=== PATIENT | male | born 1940 | race African-American/Black ===

== ENCOUNTER 2018-11-14 17:04 | Inpatient (IN) | payer MEDICARE, BC ==
[~2018-11-14] VITALS: Ht 177.8 cm; Wt 71.7 kg
--- NOTE | 2018-11-14 17:40 | NUR ---
Dr Barnard at the bedside for MSE.
--- NOTE | 2018-11-14 17:50 | NUR ---
Assissted pt to batheroom, but unable to collect urine.
[2018-11-14] MEDS ORDERED: METF-442 PO (17:58)
[2018-11-14] MEDS ORDERED: TAMSULOSIN PO (17:58)
[2018-11-14] MEDS ORDERED: FINA5TAB11 PO (17:58)
[2018-11-14 18:02] LABS: BASOPHILS # (AUTO) 0.1 K/uL (0.0-8.0); BASOPHILS % (AUTO) 1.4 % (0.0-2.0); EOSINOPHILS # (AUTO) 0.1 K/uL (0.0-0.7); EOSINOPHILS % (AUTO) 1.9 % (0.0-7.0); HEMATOCRIT 46.9 % (36.7-47.1); HEMOGLOBIN 15.8 g/dL (12.5-16.3); LYMPHOCYTES # (AUTO) 0.9 K/uL (20.0-40.0); LYMPHOCYTES % (AUTO) 18.6 % (20.5-51.5); MEAN CORPUSCULAR HEMOGLOBIN 30.3 uug (23.8-33.4); MEAN CORPUSCULAR HGB CONC 34 g/dL (32.5-36.3); MEAN CORPUSCULAR VOLUME 89.7 fL (73.0-96.2); MONOCYTES # (AUTO) 0.5 K/uL (2.0-10.0); MONOCYTES % (AUTO) 10.9 % (0.0-11.0); NEUTROPHILS # (AUTO) 3.2 K/uL (1.8-8.9); NEUTROPHILS % (AUTO) 67.2 % (38.5-71.5); PLATELET COUNT (AUTO) 181 K/uL (152-348); RED BLOOD CELL COUNT(AUTO) 5.23 MIL/uL (4.06-5.63); WHITE BLOOD COUNT (AUTO) 4.8 K/uL (3.6-10.2)
--- NOTE | 2018-11-14 18:12 | NUR ---
Beloging list completed, pt not qualified for MRSA.
[2018-11-14 18:16] LABS: ETHANOL 5 MG/DL (0-0)
[2018-11-14 18:19] LABS: CARBON DIOXIDE 29 mmol/L (21-32); CHLORIDE 104 mmol/L (98-107); CREATININE 1.1 mg/dL (0.6-1.3); GLUCOSE 109 mg/dL (74-106); POTASSIUM 4.2 mmol/L (3.5-5.1); UREA NITROGEN, BLOOD 12 mg/dL (7-18)
--- NOTE | 2018-11-14 18:29 | NUR ---
Pt resting in bed, watching TV. NAD noted.
[2018-11-14 18:32] LABS: ALANINE AMINOTRANSFERASE 33 U/L (16-63); ALKALINE PHOSPHATASE 75 U/L (50-136); ASPARTATE AMINOTRANSFERASE 33 U/L (15-37); BILIRUBIN,DIRECT 0.2 mg/dL (0.0-0.2); TOTAL PROTEIN, SERUM 7.9 g/dL (6.4-8.2)
[2018-11-14 18:34] LABS: ACETAMINOPHEN < 2.0 ug/mL (10-30)
--- NOTE | 2018-11-14 19:16 | NUR ---
Received report from Leanna CROCKER, assumed care of pt.,
--- NOTE | 2018-11-14 19:26 | NUR ---
Son at bedside,
--- NOTE | 2018-11-14 19:49 | NUR ---
Report given to Tiana CROCKER,
--- NOTE | 2018-11-14 20:50 | NUR ---
Pt. taken off unit via stretcher for admit to MHU, all belongings w/ pt., chart copied and taken over, pt. stable, NAD
[2018-11-14 20:55] VITALS: BP 147/83
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
[2018-11-14] MEDS ORDERED: TEMAZEPAM 7.5 MG CAPSULE PO PRN (21:45)
[2018-11-14] MEDS ORDERED: MAGNESIUM HYDROXIDE 30 ML LIQUID UDC PO PRN (21:45)
[2018-11-14] MEDS ORDERED: MAG HYDROX/AL HYDROX/SIMETH 30 ML LIQUID UDC PO PRN (21:45)
[2018-11-14] MEDS ORDERED: ACETAMINOPHEN 325 MG TABLET PO PRN (21:45)
[2018-11-14] MEDS ORDERED: LORAZEPAM 0.5 MG TABLET PO PRN (21:45)
--- NOTE | 2018-11-15 06:32 | NUR ---
Pt slept 6 hours. Pt given ativan at 2230h. Pt agitated and hyperverbal. Pt confused. Pt tolerated the medication. Pt calm down and sleeping comfortable. Safety and comfort provided. Pt Restoril was wasted in pyxis because pt spit it out and fell on the floor. Will continue to monitor.
--- NOTE | 2018-11-15 06:45 | NUR ---
Unable to call pt's and Tod (son). Tony Sandra lin is a wrong number when charge nurse called.Charge nurse called and left a message to Caleb Flores Jr.Pt stable and in no acute distress.
[2018-11-15] MEDS: METFORMIN HCL 500 MG TABLET PO SCH ×2 (08:00→18:00)
[2018-11-15 08:14] LABS: *BILIRUBIN,URIN 1+ (NEGATIVE); *BLOOD, URINE 1+ (NEGATIVE); *CLARITY,URINE CLEAR (CLEAR); *COLOR,URINE DARK YELLOW (YELLOW); *KETONES,URINE TRACE (NEGATIVE); LEUKOCYTE ESTERASE ,URINE NEGATIVE (NEGATIVE); NITRITE, URINE NEGATIVE (NEGATIVE); PH,URINE 5.5 (5.0-8.0); UGLUCOSE NEGATIVE (NEGATIVE)
[2018-11-15 08:22] LABS: SQUAMOUS EPITHELIAL CELL,UR NONE SEEN /HPF (NONE SEEN)
[2018-11-15 08:23] LABS: BACTERIA,URINE NONE SEEN /HPF (NONE SEEN); WBC,URINE NONE SEEN /HPF (0-3)
[2018-11-15 08:28] LABS: *AMPHETAMINE, URINE NEGATIVE (NEGATIVE); *BARBITURATE, URINE NEGATIVE (NEGATIVE); *CANNABINOID, URINE NEGATIVE (NEGATIVE); *COCCAINE, URINE NEGATIVE (NEGATIVE); *OPIATE, URINE NEGATIVE (NEGATIVE); *PHENCYCLIDINE SCREEN,URINE NEGATIVE (NEGATIVE)
[2018-11-15] MEDS: FINASTERIDE 5 MG TABLET PO SCH (09:00)
[2018-11-15] MEDS: BENAZEPRIL HCL 10 MG TABLET PO SCH (09:00)
[2018-11-15] MEDS ORDERED: Medication Not On Formulary EA (Metformin Hcl 1,000 MG) PO SCH (09:00)
[2018-11-15] MEDS: LORAZEPAM 1 MG TABLET PO PRN ×2 (10:00→20:10)
[2018-11-15 15:04] VITALS: BP 135/65
--- NOTE | 2018-11-15 15:17 | NUR ---
Initial Discharge Note: Patient is an 78 year old male who currently lives at home [[address], [place] [address]; ] with his Abeba and younger adult son Tony. Patient's son Fabrice Singh is interested in receiving assistance with DPOA and conservatorship. Per Fabrice, "I would like my father to return home once he is stable and taking his medications, I know he is a good man and we want him back". Retail Parts Pro will continue to meet with patient and collaborate with patient, family, and MD on a safe and proper discharge.
--- NOTE | 2018-11-15 18:43 | NUR ---
GPS: RECEIVED PATIENT AOX1, AMBULATORY SELF CARE, PATIENT DISORGANIZED, CONFUSED, DENIES THAT HE NEED MEDICATION, ASKING TO HAVE HIS FAMILY ON THE PHONE, SPOKE WITH SON ON PHONE, EASILY IRRITABLE AND TRIEND TO GO OUT OF THE UNIT, PRN MEDICATION GIVEN ORDERED, DENIES PAIN , VS WNL, PATIENT IS MONITORED FOR FALL RISK , WILL CONTINUE MONITOR
[2018-11-15] MEDS: TAMSULOSIN HCL 0.4 MG CAP.SR.24H PO SCH (20:09)
[2018-11-15] MEDS: DIVALPROEX 250 MG TABLET.DR PO SCH (20:09)
[2018-11-15] MEDS: QUETIAPINE FUMARATE 25 MG TABLET PO SCH (20:10)
--- NOTE | 2018-11-16 03:40 | NUR ---
received in bed upon initial rounds. alert and oriented x1. easily gets agitated. tolerated po meds well without difficulty. ativan given. VSS stay in bed most of the shift. will monitor patient. no further agitation or restlessness noted.
[2018-11-16 07:30] VITALS: BP 149/68
[2018-11-16] MEDS: METFORMIN HCL 500 MG TABLET PO SCH ×2 (08:02→17:26)
[2018-11-16] MEDS: LORAZEPAM 1 MG TABLET PO PRN (08:02)
[2018-11-16] MEDS: DIVALPROEX 250 MG TABLET.DR PO SCH ×2 (08:02→20:15)
[2018-11-16] MEDS: BENAZEPRIL HCL 10 MG TABLET PO SCH (08:04)
[2018-11-16] MEDS: FINASTERIDE 5 MG TABLET PO SCH (08:06)
[2018-11-16 16:00] VITALS: BP 90/41
--- NOTE | 2018-11-16 17:39 | NUR ---
PT SON HAS BEEN ESCORTED OUT OF UNIT. EXTREMELY HOSTILE, VERBALLY AGGRESSIVE, AND THREATENING STAFF. MAKING STATEMENTS SUCH "I'M FUCKING BIGGER THAN YOUR ASS" AND "JUST BECAUSE WE'RE BLACK, YOU THINK HE DON'T HAVE FAMILY AND SHIT?" PT'S SON CONTINUE TO BE HIGHLY IRATE AND UNREDIRECTABLE. YELLING/SCREAMING AT STAFF, PACING UNIT HALLWAY. ACCUSING CHARGE NURSE OF BEING ON THE PHONE FOR "2 HOURS" AND IGNORING HIM. STATING PT'S NURSE IS NEGLECTFUL. SECURITY HAS BEEN CALLED.
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
[2018-11-16] MEDS: QUETIAPINE FUMARATE 25 MG TABLET PO SCH (20:15)
[2018-11-16] MEDS: TAMSULOSIN HCL 0.4 MG CAP.SR.24H PO SCH (20:15)
[2018-11-16 20:54] VITALS: BP 110/57
[2018-11-17 07:30] VITALS: BP 122/47
[2018-11-17] MEDS: METFORMIN HCL 500 MG TABLET PO SCH ×2 (08:00→17:34)
[2018-11-17] MEDS: DIVALPROEX 250 MG TABLET.DR PO SCH ×2 (09:00→20:33)
[2018-11-17] MEDS: FINASTERIDE 5 MG TABLET PO SCH (09:00)
[2018-11-17] MEDS: BENAZEPRIL HCL 10 MG TABLET PO SCH (09:00)
--- NOTE | 2018-11-17 18:02 | NUR ---
Gps/Senior C Web Developer- Routine am medications initially refused by patient, but decided he will take them after awhile, re offered was able to take all am meds. as well routine pm med.Family was in to visit this pm.Patient, needed redirections and prompting.
[2018-11-17 20:00] VITALS: BP 110/54
[2018-11-17] MEDS: TAMSULOSIN HCL 0.4 MG CAP.SR.24H PO SCH (20:33)
[2018-11-17] MEDS: QUETIAPINE FUMARATE 25 MG TABLET PO SCH (20:34)
--- NOTE | 2018-11-18 05:57 | NUR ---
pt. slept for 6 hrs. pt. is calm & cooperative. kept pt safe & free from injury. ambulating well in the hallway. watched tv till sleepy not in any distress.
[2018-11-18 08:00] VITALS: BP 121/47
[2018-11-18] MEDS: BENAZEPRIL HCL 10 MG TABLET PO SCH (08:34)
[2018-11-18] MEDS: FINASTERIDE 5 MG TABLET PO SCH (08:34)
[2018-11-18] MEDS: METFORMIN HCL 500 MG TABLET PO SCH ×2 (08:34→17:05)
[2018-11-18] MEDS: DIVALPROEX 250 MG TABLET.DR PO SCH ×2 (08:34→20:39)
--- NOTE | 2018-11-18 14:29 | NUR ---
Gps/Barrel Rib Matting Machine Operator- Patient tends to stand up by the doorway, instructed patient to stay in the activity room . Confused, forgetful, needed redirections from time to time.
[2018-11-18 16:00] VITALS: BP 111/49
[2018-11-18 20:15] VITALS: BP 137/57
[2018-11-18] MEDS: QUETIAPINE FUMARATE 25 MG TABLET PO SCH (20:40)
[2018-11-18] MEDS: TAMSULOSIN HCL 0.4 MG CAP.SR.24H PO SCH (20:40)
[2018-11-19 07:30] VITALS: BP 108/71
[2018-11-19] MEDS: DIVALPROEX 250 MG TABLET.DR PO SCH ×2 (08:50→20:19)
[2018-11-19] MEDS: BENAZEPRIL HCL 10 MG TABLET PO SCH (08:50)
[2018-11-19] MEDS: FINASTERIDE 5 MG TABLET PO SCH (08:50)
[2018-11-19] MEDS: METFORMIN HCL 500 MG TABLET PO SCH ×2 (08:50→17:08)
[2018-11-19 15:19] VITALS: BP 95/53
--- NOTE | 2018-11-19 17:45 | NUR ---
Gps/Forest Science Professor-Patient increased confusion after family left , wants to go home, wants to leave , difficulty redirecting patient. Does not want to leave the door way, pt. pushing the doors. Wrote note saying and son will be back tomorrow, informed pt, to hang on to the paper to remind him family are coming back tomorrow.
[2018-11-19 19:50] VITALS: BP 146/60
[2018-11-19] MEDS: QUETIAPINE FUMARATE 25 MG TABLET PO SCH (20:18)
[2018-11-19] MEDS: TAMSULOSIN HCL 0.4 MG CAP.SR.24H PO SCH (20:18)
[2018-11-20 07:30] VITALS: BP 106/50
--- NOTE | 2018-11-20 07:53 | NUR ---
PATIENT IS SITTING AT THE BEDSIDE, NO SOB, RESP EVEN NONLABORED,SKIN WARM AND DRY TO TOUCH, NO AGGRESSIVE, OR COMBATIVE BEHAVIOR NOTED, NO ACUTE DISTRESS NOTED AT THIS TIME
[2018-11-20] MEDS: METFORMIN HCL 500 MG TABLET PO SCH ×2 (08:36→17:03)
[2018-11-20] MEDS: DIVALPROEX 250 MG TABLET.DR PO SCH ×2 (08:36→20:09)
[2018-11-20] MEDS: FINASTERIDE 5 MG TABLET PO SCH (08:36)
[2018-11-20] MEDS: BENAZEPRIL HCL 10 MG TABLET PO SCH (08:38)
--- NOTE | 2018-11-20 14:20 | NUR ---
patient noted with poor po intake, MD Brantley made aware, with order to do dietary consult, pulp mixer made aware.
--- NOTE | 2018-11-20 15:05 | NUR ---
rn neonatal icu recommended change cardiac diet to regular diet and start patient on megace, dr Brantley approved the recommendation and started patient on regular diet, and megace as ordered. offered patient different choices of food, encouraged to eat, but not effective, patient stated "he does not want to eat, he is not [place]", however patient is compliant with his medications, continue to monitor, kept safe, kept free from injury, patient is confuse, walks back and forth to the exit door,looks outside of the door, easily redirectable.
--- NOTE | 2018-11-20 15:30 | NUR ---
Responded to nutrition consult Spoke with nurse, nurse concerns pt hasn't been eating well, he refused food but med compliant. Pt has been seen and assessed by CARI. Pt seen again today, he kept saying he eating very well, eating everything. RD and nurse tried to give Ensure in the activity room, pt took a sip and said he doesn't like these cause it is too sweet and he doesn't like sweet. Dietitian's Recommendations: -Recs liberalize diet to regular (pt currently on cardiac diet), pt can have more food choices options and more taste (BG has been low) -Pt is compliant with medication, recs appetite stimulant -Continues provide Ensure, possible mix with regular milk in the cup and give it to pt (discussed with RN) Addendum: 11/20/18 at [address] Amended: Links added.
[2018-11-20 16:00] VITALS: BP 153/60
--- NOTE | 2018-11-20 17:06 | NUR ---
spoke to dr Brantley regarding administering metformin even patient has not eaten well, per Dr Brantley it is ok to administer metformin even patient has not eaten well.
--- NOTE | 2018-11-20 18:22 | NUR ---
patient has visitor his son and during dinner time, patient ate good dinner 100%, drank supplements as well, tolerated meds. however patient noted with episodes of agitation during son visit, son was upset about the broken one piece of blind in patient room, assured son that engineering is notified and will fix it as soon as possible. patient wanted to leave with son and his , standing next to exit door, redirected, talk to patient redirected and reoriented, effective, patient son requested urgent to talk to dr Nazario tomorrow whenever dr Nazario makes round at number [phone] charge nurse made aware and will endorse accordingly to next shift to endorse in the morning. patient went back to his room, no acute distress noted, questions are answered and issues are addressed.
[2018-11-20] MEDS: LORAZEPAM 1 MG TABLET PO PRN (19:27)
[2018-11-20] MEDS: QUETIAPINE FUMARATE 25 MG TABLET PO SCH (20:09)
[2018-11-20] MEDS: MEGESTROL ACETATE 400 MG/10 ML LIQUID UDC PO SCH (20:09)
[2018-11-20] MEDS: TAMSULOSIN HCL 0.4 MG CAP.SR.24H PO SCH (20:09)
[2018-11-20 20:18] VITALS: BP 142/57
[2018-11-21 07:30] VITALS: BP 118/54
[2018-11-21] MEDS: METFORMIN HCL 500 MG TABLET PO SCH ×2 (08:22→17:09)
[2018-11-21] MEDS: FINASTERIDE 5 MG TABLET PO SCH (08:22)
[2018-11-21] MEDS: MEGESTROL ACETATE 400 MG/10 ML LIQUID UDC PO SCH ×2 (08:22→20:28)
[2018-11-21] MEDS: BENAZEPRIL HCL 10 MG TABLET PO SCH (08:23)
[2018-11-21] MEDS: DIVALPROEX 250 MG TABLET.DR PO SCH ×2 (08:23→20:28)
[2018-11-21 16:00] VITALS: BP 108/45
[2018-11-21 20:24] VITALS: BP 112/50
[2018-11-21] MEDS: QUETIAPINE FUMARATE 25 MG TABLET PO SCH (20:28)
[2018-11-21] MEDS: TAMSULOSIN HCL 0.4 MG CAP.SR.24H PO SCH (20:28)
--- NOTE | 2018-11-21 21:25 | NUR ---
Patient received sitting up in bed, alert/oriented x1 with confusion noted. Patient requires frequent prompting. Patient complaint with medication. Patient denies pain at this time, will continue to monitor. Bed in lowest position, bed locked and bed alarm on while in bed.
[2018-11-21 21:26] VITALS: BP 120/60
[2018-11-22] MEDS: DIVALPROEX 250 MG TABLET.DR PO SCH ×2 (08:20→20:13)
[2018-11-22] MEDS: METFORMIN HCL 500 MG TABLET PO SCH ×2 (08:20→17:02)
[2018-11-22] MEDS: MEGESTROL ACETATE 400 MG/10 ML LIQUID UDC PO SCH ×2 (08:21→20:13)
[2018-11-22] MEDS: FINASTERIDE 5 MG TABLET PO SCH (08:23)
[2018-11-22] MEDS: BENAZEPRIL HCL 10 MG TABLET PO SCH (08:23)
[2018-11-22 10:05] VITALS: BP 122/64
[2018-11-22 15:34] VITALS: BP 111/50
[2018-11-22] MEDS: TAMSULOSIN HCL 0.4 MG CAP.SR.24H PO SCH (20:13)
[2018-11-22] MEDS: QUETIAPINE FUMARATE 25 MG TABLET PO SCH (20:13)
[2018-11-22 21:13] VITALS: BP 112/43
[2018-11-23 07:30] VITALS: BP_SYST 122; BP_SYST 145; BP_DIAS 50; BP_DIAS 69
[2018-11-23] MEDS: FINASTERIDE 5 MG TABLET PO SCH (08:11)
[2018-11-23] MEDS: DIVALPROEX 250 MG TABLET.DR PO SCH (08:11)
[2018-11-23] MEDS: METFORMIN HCL 500 MG TABLET PO SCH (08:11)
[2018-11-23] MEDS: MEGESTROL ACETATE 400 MG/10 ML LIQUID UDC PO SCH (08:11)
[2018-11-23 08:12] VITALS: BP 145/50
[2018-11-23] MEDS: BENAZEPRIL HCL 10 MG TABLET PO SCH (08:12)
--- NOTE | 2018-11-23 10:01 | NUR ---
Discharge Note: Patient will be discharged today back home [[address], [place] [address]; ]. Patient transportation will be provided by patients ashely Avina [[phone]]. Patient is alert and oriented X1-2. Spoke with patients ashely Avina and Tony and they are agreeable with discharge plan. Hat Brim Curler presented option for temporary or permanent SNF placement for patient. Patients estefani Avina and Tony declined. Patient was also provided with a referral to [facility] [[address] [facility] [address]; ]. Patient has a scheduled appointment to follow up with psychiatry services at [facility] on Wednesday, November 30 at 1:00pm. Patient was provided with outpatient mental health resources to [facility] , Kami Garcia , and the National Suicide Prevention Lifeline .
[2018-11-23] MEDS: LORAZEPAM 1 MG TABLET PO PRN (10:20)
--- NOTE | 2018-11-23 10:32 | NUR ---
FIREARMS REPORT: Machinist completed and submitted a [employer] firearms report for 5150 DTO certification. A copy of report has been placed in patient chart.
--- NOTE | 2018-11-23 10:45 | NUR ---
PATIENT IS ALERT, ORIENTED X1-2, NO SOB,RESP EVEN NONLABORED,SKIN WARM AND DRY TO TOUCH, PATIENT WAS SITTING IN THE DINNING ROOM PLATE PRINTER, WELL GROOMED, ATE HIS BREAKFAST 100% TOLERATED WELL, PATIENT IS DISCHARGED HOME WITH SON Fabrice AND WITH , INSTRUCTIONS GIVENT TO SON, EXPLAINED ABOUT PRESCRIPTION AND FOLLOW UP APT ON November, AT 1PM, SON VERBALIZED UNDERSTANDING OF FOLLOW UP APT AND PRESCRIPTION, RESOURCES PROVIDED, PATIENT DISCHARGED HOME IN STABLE CONDITION, NO SKIN ISSUES, BELONGINGS ARE ACCOUNTED AND SIGNED, ID BAND REMOVED, ASSISTED PATIENT TO THE CAR WITH WHEEL CHAIR, WITH FAMILY.
== END 2018-11-23 11:00 | disposition home or self-care (01) | DRG 885 ==
LOC: ER 17:06 → GPS 20:31
PROVIDERS: ADMIT Psychiatry & Neurology Psychiatry
DX: F39 Unspecified mood [affective] disorder (principal); E11.65 Type 2 diabetes mellitus with hyperglycemia; F02.81 Dementia in other diseases classified elsewhere, unspecified severity, with behavioral disturbance; G30.9 Alzheimer's disease, unspecified; E11.9 Type 2 diabetes mellitus without complications; Z79.84 Long term (current) use of oral hypoglycemic drugs; N40.0 Benign prostatic hyperplasia without lower urinary tract symptoms; I10 Essential (primary) hypertension
CPT/HCPCS: 36415; 80164; 80307; 85025; 93005; A4663; G0480; G0480-TC; J3490; J8999

== ENCOUNTER 2018-12-04 10:31 | Inpatient (IN) | payer MEDICARE, BC ==
[~2018-12-04] VITALS: Ht 182.9 cm; Wt 73.5 kg
[~2018-12-04 10:31] MED LIST: FINA5TAB11 PO; METF-442 PO; TAMSULOSIN PO
[2018-12-04] MEDS ORDERED: MAGNESIUM HYDROXIDE 30 ML LIQUID UDC PO PRN (12:00)
[2018-12-04] MEDS ORDERED: MAG HYDROX/AL HYDROX/SIMETH 30 ML LIQUID UDC PO PRN (12:00)
[2018-12-04] MEDS: METFORMIN HCL 500 MG TABLET PO SCH (18:16)
[2018-12-04 20:01] VITALS: BP 168/80
[2018-12-04] MEDS: LORAZEPAM 0.5 MG TABLET PO PRN (20:05)
[2018-12-04] MEDS: TAMSULOSIN HCL 0.4 MG CAP.SR.24H PO SCH (20:06)
[2018-12-04 21:15] VITALS: BP 152/80
[2018-12-04] MEDS: TEMAZEPAM 7.5 MG CAPSULE PO PRN (21:39)
[2018-12-05 07:30] VITALS: BP 108/66
[2018-12-05] MEDS: ACETAMINOPHEN 325 MG TABLET PO PRN (07:59)
[2018-12-05] MEDS: LORAZEPAM 0.5 MG TABLET PO PRN ×2 (07:59→17:29)
[2018-12-05] MEDS: METFORMIN HCL 500 MG TABLET PO SCH ×2 (08:29→17:29)
[2018-12-05] MEDS: FINASTERIDE 5 MG TABLET PO SCH (08:29)
[2018-12-05 15:10] VITALS: BP 163/78
[2018-12-05] MEDS: QUETIAPINE FUMARATE 25 MG TABLET PO SCH (20:03)
[2018-12-05] MEDS: TAMSULOSIN HCL 0.4 MG CAP.SR.24H PO SCH (20:03)
[2018-12-05] MEDS: DIVALPROEX 250 MG TABLET.DR PO SCH (20:03)
[2018-12-06] MEDS: TEMAZEPAM 7.5 MG CAPSULE PO PRN (00:19)
[2018-12-06 07:30] VITALS: BP 134/48
[2018-12-06] MEDS: LORAZEPAM 0.5 MG TABLET PO PRN (08:18)
[2018-12-06] MEDS: FINASTERIDE 5 MG TABLET PO SCH (09:23)
[2018-12-06] MEDS: QUETIAPINE FUMARATE 25 MG TABLET PO SCH ×2 (09:23→20:37)
[2018-12-06] MEDS: ACETAMINOPHEN 325 MG TABLET PO PRN (09:23)
[2018-12-06] MEDS: DIVALPROEX 250 MG TABLET.DR PO SCH ×2 (09:23→20:37)
[2018-12-06] MEDS: METFORMIN HCL 500 MG TABLET PO SCH ×2 (09:24→17:12)
[2018-12-06 15:58] VITALS: BP 139/58
[2018-12-06 19:59] VITALS: BP 125/62
[2018-12-06] MEDS: TAMSULOSIN HCL 0.4 MG CAP.SR.24H PO SCH (20:37)
[2018-12-07 07:03] LABS: BASOPHILS # (AUTO) 0.1 K/uL (0.0-8.0); BASOPHILS % (AUTO) 0.7 % (0.0-2.0); EOSINOPHILS % (AUTO) 0.2 % (0.0-7.0); HEMATOCRIT 44.6 % (36.7-47.1); HEMOGLOBIN 15.1 g/dL (12.5-16.3); LYMPHOCYTES # (AUTO) 0.8 K/uL (20.0-40.0); LYMPHOCYTES % (AUTO) 6.3 % (20.5-51.5); MEAN CORPUSCULAR HEMOGLOBIN 30.2 uug (23.8-33.4); MEAN CORPUSCULAR HGB CONC 34 g/dL (32.5-36.3); MEAN CORPUSCULAR VOLUME 89.5 fL (73.0-96.2); MONOCYTES % (AUTO) 8.4 % (0.0-11.0); NEUTROPHILS # (AUTO) 10.3 K/uL (1.8-8.9); NEUTROPHILS % (AUTO) 84.4 % (38.5-71.5); PLATELET COUNT (AUTO) 176 K/uL (152-348); RED BLOOD CELL COUNT(AUTO) 4.99 MIL/uL (4.06-5.63); WHITE BLOOD COUNT (AUTO) 12.2 K/uL (3.6-10.2)
[2018-12-07 07:10] LABS: CARBON DIOXIDE 25 mmol/L (21-32); CHLORIDE 102 mmol/L (98-107); GLUCOSE 165 mg/dL (74-106); POTASSIUM 4.4 mmol/L (3.5-5.1); UREA NITROGEN, BLOOD 49 mg/dL (7-18)
[2018-12-07 08:01] VITALS: BP 149/64
[2018-12-07] MEDS: DIVALPROEX 250 MG TABLET.DR PO SCH (08:14)
[2018-12-07] MEDS: QUETIAPINE FUMARATE 25 MG TABLET PO SCH (08:14)
[2018-12-07] MEDS: METFORMIN HCL 500 MG TABLET PO SCH (08:14)
[2018-12-07] MEDS: FINASTERIDE 5 MG TABLET PO SCH (08:15)
== END 2018-12-07 17:08 | disposition short-term general hospital (02) | DRG 885 ==
LOC: ER 10:31 → GPS 11:45
PROVIDERS: ADMIT Psychiatry & Neurology Psychiatry; ATTEND Nurse Practitioner Acute Care
DX: F29 Unspecified psychosis not due to a substance or known physiological condition (principal); N17.0 Acute kidney failure with tubular necrosis; F02.81 Dementia in other diseases classified elsewhere, unspecified severity, with behavioral disturbance; G30.9 Alzheimer's disease, unspecified; G20 Parkinson's disease; E11.9 Type 2 diabetes mellitus without complications; I44.0 Atrioventricular block, first degree; N40.0 Benign prostatic hyperplasia without lower urinary tract symptoms; I70.0 Atherosclerosis of aorta; Z79.84 Long term (current) use of oral hypoglycemic drugs; I10 Essential (primary) hypertension; E78.5 Hyperlipidemia, unspecified
CPT/HCPCS: 36415; 71045; 85025; 93005; 97110; 97116; 97530; A4663; J3490; J7030

== ENCOUNTER 2018-12-07 17:20 | Inpatient (IN) | payer MEDICARE, BC ==
[~2018-12-07] VITALS: Ht 180.3 cm; Wt 74.0 kg
[2018-12-07 16:30] VITALS: BP 141/73
[2018-12-07] MEDS ORDERED: DEXTROSE 50% 50 ML DISP.SYRIN IV PRN (17:30)
[2018-12-07] MEDS ORDERED: PANTOPRAZOLE SODIUM 40 MG VIAL IV SCH (17:30)
[2018-12-07] MEDS ORDERED: INSULIN REGULAR, HUMAN 300 UNIT/3 ML VIAL SQ PRN (17:30)
[2018-12-07] MEDS ORDERED: Z GUARD REMEDY PASTE 57 GM TUBE TOP PRN (17:30)
[2018-12-07] MEDS ORDERED: HYDROCODONE/APAP 5-325MG TABLET PO PRN (17:30)
[2018-12-07] MEDS ORDERED: MAGNESIUM HYDROXIDE 30 ML LIQUID UDC PO PRN (17:30)
[2018-12-07] MEDS ORDERED: ONDANSETRON 4 MG/2 ML VIAL IV PRN (17:30)
[2018-12-07] MEDS ORDERED: TEMAZEPAM 15 MG CAPSULE PO PRN (17:30)
[2018-12-07] MEDS: IV NS 1000 ML 1,000 ML IV PRN (18:28)
[2018-12-07 19:40] VITALS: BP 143/56
[2018-12-07] MEDS: TAMSULOSIN HCL 0.4 MG CAP.SR.24H PO SCH (20:39)
[2018-12-07] MEDS: BLOOD SUGAR DIAGNOSTIC 1 EACH STRIP VI SCH (20:44)
[2018-12-07 22:36] LABS: *BILIRUBIN,URIN NEGATIVE (NEGATIVE); *BLOOD, URINE 3+ (NEGATIVE); *COLOR,URINE YELLOW (YELLOW); *KETONES,URINE NEGATIVE (NEGATIVE); *UROBILINOGEN,URINE 0.2 E.U./dl (NORMAL); LEUKOCYTE ESTERASE ,URINE NEGATIVE (NEGATIVE); NITRITE, URINE NEGATIVE (NEGATIVE); PH,URINE 5.5 (5.0-8.0); UGLUCOSE NEGATIVE (NEGATIVE)
[2018-12-07 22:39] LABS: *CLARITY,URINE HAZY (CLEAR)
[2018-12-07 22:44] LABS: BACTERIA,URINE NONE SEEN /HPF (NONE SEEN); RBC,URINE 50-80 /HPF (0-3); SQUAMOUS EPITHELIAL CELL,UR FEW /HPF (NONE SEEN); URINE AMORPHOUS URATE FEW /HPF; WBC,URINE 0-3 /HPF (0-3)
[2018-12-07 22:46] LABS: *CREATININE,URINE 139.2 mg/dL (30-125); *URINE TOTAL PROTEIN RANDOM 46.5 mg/dL (<150/24HR)
[2018-12-08] MEDS: ACETAMINOPHEN 325 MG TABLET PO PRN (00:10)
[2018-12-08] MEDS: IV NS 1000 ML 1,000 ML IV PRN ×2 (03:37→14:40)
[2018-12-08] MEDS: PANTOPRAZOLE SODIUM 40 MG TABLET.DR PO SCH (06:10)
[2018-12-08] MEDS: BLOOD SUGAR DIAGNOSTIC 1 EACH STRIP VI SCH ×4 (06:30→20:40)
[2018-12-08 06:31] VITALS: BP 138/61
[2018-12-08 06:39] LABS: BASOPHILS % (AUTO) 0.3 % (0.0-2.0); EOSINOPHILS # (AUTO) 0.1 K/uL (0.0-0.7); EOSINOPHILS % (AUTO) 0.8 % (0.0-7.0); HEMATOCRIT 40.4 % (36.7-47.1); HEMOGLOBIN 13.8 g/dL (12.5-16.3); LYMPHOCYTES # (AUTO) 0.9 K/uL (20.0-40.0); LYMPHOCYTES % (AUTO) 10.9 % (20.5-51.5); MEAN CORPUSCULAR HEMOGLOBIN 30.6 uug (23.8-33.4); MEAN CORPUSCULAR HGB CONC 34 g/dL (32.5-36.3); MEAN CORPUSCULAR VOLUME 89.3 fL (73.0-96.2); MONOCYTES # (AUTO) 0.8 K/uL (2.0-10.0); MONOCYTES % (AUTO) 10.3 % (0.0-11.0); NEUTROPHILS # (AUTO) 6.2 K/uL (1.8-8.9); NEUTROPHILS % (AUTO) 77.7 % (38.5-71.5); PLATELET COUNT (AUTO) 126 K/uL (152-348); RED BLOOD CELL COUNT(AUTO) 4.52 MIL/uL (4.06-5.63)
[2018-12-08 06:54] LABS: ALANINE AMINOTRANSFERASE 17 U/L (16-63); ALKALINE PHOSPHATASE 64 U/L (50-136); ASPARTATE AMINOTRANSFERASE 15 U/L (15-37); BILIRUBIN,TOTAL 1.1 mg/dL (0.2-1.0); CARBON DIOXIDE 26 mmol/L (21-32); CHLORIDE 110 mmol/L (98-107); CREATINE KINASE, TOTAL 124 U/L (39-308); CREATININE 1.9 mg/dL (0.6-1.3); GLUCOSE 109 mg/dL (74-106); MAGNESIUM 2.1 mg/dL (1.8-2.4); PHOSPHOROUS 3.3 mg/dL (2.5-4.9); POTASSIUM 3.8 mmol/L (3.5-5.1); TOTAL PROTEIN, SERUM 7.1 g/dL (6.4-8.2); UREA NITROGEN, BLOOD 51 mg/dL (7-18)
[2018-12-08] MEDS: FINASTERIDE 5 MG TABLET PO SCH (08:38)
[2018-12-08 12:05] VITALS: BP 151/63
[2018-12-08 15:25] VITALS: BP 134/58
[2018-12-08 20:00] VITALS: BP 149/69
[2018-12-08] MEDS: QUETIAPINE FUMARATE 25 MG TABLET PO SCH (20:40)
[2018-12-08] MEDS: TAMSULOSIN HCL 0.4 MG CAP.SR.24H PO SCH (20:40)
[2018-12-09] VITALS: BP 153/54
[2018-12-09 04:00] VITALS: BP 161/68
[2018-12-09] MEDS: IV NS 1000 ML 1,000 ML IV PRN ×2 (04:41→21:34)
[2018-12-09 06:27] LABS: CARBON DIOXIDE 26 mmol/L (21-32); CHLORIDE 110 mmol/L (98-107); CREATININE 0.9 mg/dL (0.6-1.3); GLUCOSE 104 mg/dL (74-106); POTASSIUM 3.6 mmol/L (3.5-5.1); UREA NITROGEN, BLOOD 22 mg/dL (7-18)
[2018-12-09] MEDS: BLOOD SUGAR DIAGNOSTIC 1 EACH STRIP VI SCH ×4 (06:27→21:29)
[2018-12-09] MEDS: PANTOPRAZOLE SODIUM 40 MG TABLET.DR PO SCH (06:27)
[2018-12-09 07:16] VITALS: BP 157/60
[2018-12-09 07:28] LABS: BASOPHILS % (AUTO) 0.6 % (0.0-2.0); EOSINOPHILS # (AUTO) 0.1 K/uL (0.0-0.7); EOSINOPHILS % (AUTO) 2.7 % (0.0-7.0); HEMATOCRIT 37.9 % (36.7-47.1); LYMPHOCYTES # (AUTO) 0.8 K/uL (20.0-40.0); LYMPHOCYTES % (AUTO) 15.8 % (20.5-51.5); MEAN CORPUSCULAR HEMOGLOBIN 30.9 uug (23.8-33.4); MEAN CORPUSCULAR HGB CONC 34 g/dL (32.5-36.3); MEAN CORPUSCULAR VOLUME 89.9 fL (73.0-96.2); MONOCYTES # (AUTO) 0.6 K/uL (2.0-10.0); MONOCYTES % (AUTO) 11.1 % (0.0-11.0); NEUTROPHILS # (AUTO) 3.5 K/uL (1.8-8.9); NEUTROPHILS % (AUTO) 69.8 % (38.5-71.5); PLATELET COUNT (AUTO) 108 K/uL (152-348); RED BLOOD CELL COUNT(AUTO) 4.22 MIL/uL (4.06-5.63)
[2018-12-09] MEDS: FINASTERIDE 5 MG TABLET PO SCH (09:08)
[2018-12-09 09:10] LABS: ALBUMIN 3.2 g/dL (2.9-4.4); ALPHA-1-GLOBULIN 0.4 g/dL (0.0-0.4); ALPHA-2-GLOBULIN 0.9 g/dL (0.4-1.0); BETA GLOBULIN 1.1 g/dL (0.7-1.3); GAMMA GLOBULIN 0.9 g/dL (0.4-1.8); GLOBULIN, TOTAL 3.3 g/dL (2.2-3.9); M-SPIKE Not Observed g/dL (Not Observed)
[2018-12-09 11:51] VITALS: BP 142/62
[2018-12-09 15:53] VITALS: BP 140/56
[2018-12-09 20:11] VITALS: BP 139/64
[2018-12-09] MEDS: TAMSULOSIN HCL 0.4 MG CAP.SR.24H PO SCH (21:19)
[2018-12-09] MEDS: QUETIAPINE FUMARATE 25 MG TABLET PO SCH (21:19)
[2018-12-10 04:30] VITALS: BP 172/68
[2018-12-10 05:09] LABS: HEPATITIS B SURFACE AB Non Reactive (.)
[2018-12-10] MEDS: PANTOPRAZOLE SODIUM 40 MG TABLET.DR PO SCH (06:32)
[2018-12-10 06:35] LABS: CARBON DIOXIDE 28 mmol/L (21-32); CHLORIDE 107 mmol/L (98-107); CREATININE 0.7 mg/dL (0.6-1.3); GLUCOSE 95 mg/dL (74-106); POTASSIUM 3.6 mmol/L (3.5-5.1); UREA NITROGEN, BLOOD 13 mg/dL (7-18)
[2018-12-10] MEDS: BLOOD SUGAR DIAGNOSTIC 1 EACH STRIP VI SCH ×4 (06:42→20:48)
[2018-12-10] MEDS: ACETAMINOPHEN 325 MG TABLET PO PRN (08:26)
[2018-12-10] MEDS: FINASTERIDE 5 MG TABLET PO SCH (08:26)
[2018-12-10 09:00] VITALS: BP 168/72
[2018-12-10 12:00] VITALS: BP 114/41
[2018-12-10 16:04] VITALS: BP 166/69
[2018-12-10 20:00] VITALS: BP 148/62
[2018-12-10] MEDS: DIVALPROEX 250 MG TABLET.DR PO SCH (20:43)
[2018-12-10] MEDS: TAMSULOSIN HCL 0.4 MG CAP.SR.24H PO SCH (20:43)
[2018-12-10] MEDS: QUETIAPINE FUMARATE 25 MG TABLET PO SCH (20:44)
[2018-12-11 05:53] VITALS: BP 147/61
[2018-12-11] MEDS: BLOOD SUGAR DIAGNOSTIC 1 EACH STRIP VI SCH ×4 (05:57→21:31)
[2018-12-11] MEDS: PANTOPRAZOLE SODIUM 40 MG TABLET.DR PO SCH (06:22)
[2018-12-11 06:45] VITALS: BP 147/61
[2018-12-11 08:55] VITALS: BP 138/56
[2018-12-11] MEDS: FINASTERIDE 5 MG TABLET PO SCH (09:04)
[2018-12-11] MEDS: DIVALPROEX 250 MG TABLET.DR PO SCH ×2 (09:04→21:19)
[2018-12-11 11:29] VITALS: BP 152/65
[2018-12-11 15:18] VITALS: BP 137/62
[2018-12-11 19:30] VITALS: BP 156/74
[2018-12-11] MEDS: QUETIAPINE FUMARATE 25 MG TABLET PO SCH (21:19)
[2018-12-11] MEDS: TAMSULOSIN HCL 0.4 MG CAP.SR.24H PO SCH (21:19)
[2018-12-12 05:30] VITALS: BP 146/88
[2018-12-12] MEDS: PANTOPRAZOLE SODIUM 40 MG TABLET.DR PO SCH (06:03)
[2018-12-12] MEDS: BLOOD SUGAR DIAGNOSTIC 1 EACH STRIP VI SCH ×3 (06:08→16:43)
[2018-12-12 08:12] LABS: CARBON DIOXIDE 29 mmol/L (21-32); CHLORIDE 105 mmol/L (98-107); CREATININE 0.7 mg/dL (0.6-1.3); GLUCOSE 102 mg/dL (74-106); POTASSIUM 3.7 mmol/L (3.5-5.1); UREA NITROGEN, BLOOD 13 mg/dL (7-18)
[2018-12-12] MEDS: FINASTERIDE 5 MG TABLET PO SCH (08:56)
[2018-12-12] MEDS: DIVALPROEX 250 MG TABLET.DR PO SCH (08:56)
[2018-12-12] MEDS ORDERED: VALSARTAN 80 MG TABLET PO SCH (09:15)
[2018-12-12 11:01] VITALS: BP 135/59
[2018-12-12 16:26] VITALS: BP 138/61
[2018-12-13] MEDS ORDERED: TAMS-3 PO (08:03)
== END 2018-12-12 18:08 | DRG 682 ==
LOC: MEDSURG3 17:20
PROVIDERS: ADMIT Nurse Practitioner Acute Care; ATTEND Nurse Practitioner Acute Care
DX: N17.0 Acute kidney failure with tubular necrosis (principal); G93.41 Metabolic encephalopathy; E44.0 Moderate protein-calorie malnutrition; D68.59 Other primary thrombophilia; R62.7 Adult failure to thrive; E86.0 Dehydration; Z68.22 Body mass index [BMI] 22.0-22.9, adult; F03.90 Unspecified dementia, unspecified severity, without behavioral disturbance, psychotic disturbance, mood disturbance, and anxiety; E78.5 Hyperlipidemia, unspecified; N40.0 Benign prostatic hyperplasia without lower urinary tract symptoms; I70.0 Atherosclerosis of aorta; E11.9 Type 2 diabetes mellitus without complications; Z79.84 Long term (current) use of oral hypoglycemic drugs; Z79.899 Other long term (current) drug therapy; I10 Essential (primary) hypertension
CPT/HCPCS: 36415; 76770; 83735; 83970; 84100; 84155; 84156; 84165; 84300; 85025; 86704; 86706; 86803; 97116; 97530; G0378; J1815; J3490; J7030

== ENCOUNTER 2018-12-12 18:02 | Inpatient (IN) | payer MEDICARE, BC ==
[~2018-12-12] VITALS: Ht 180.3 cm; Wt 74.8 kg
--- NOTE | 2018-12-12 18:33 | NUR ---
Patient resting in bed with 1:1 sitter at bedside for safety, discharge from Med surg complete. Will endorse GPS overflow admission to oncoming shift. IV access removed with transition from Acute to GPS overflow. Patient belongings in contraband, safety precautions in place. GPS paper chart complete. Patient seen by PT today, NWB to right lower extremity Beni Murry BANQUET DIRECTOR aware. Patient's baseline is up to chair. Accuchecks done, no insulin coverage today. [address], up 12/19/18. End of shift chart check done, will endorse care.
[2018-12-12] MEDS ORDERED: TEMAZEPAM 7.5 MG CAPSULE PO PRN (18:45)
[2018-12-12] MEDS ORDERED: MAGNESIUM HYDROXIDE 30 ML LIQUID UDC PO PRN (18:45)
[2018-12-12] MEDS ORDERED: LORAZEPAM 1 MG TABLET PO PRN (18:45)
[2018-12-12] MEDS ORDERED: MAG HYDROX/AL HYDROX/SIMETH 30 ML LIQUID UDC PO PRN (18:45)
--- NOTE | 2018-12-12 18:45 | NUR ---
informed Dr Nazario that pt is now under U overflow
[2018-12-12 20:18] VITALS: BP 134/58
--- NOTE | 2018-12-12 21:55 | NUR ---
Received report from OBI Reza because of change of assignment. Patient is in bed, A/O x1 with 1:1 sitter at bedside. Patient has been admitted as a MHU overflow, patient is now on at 14 day hold up on 12/19/18. No signs of acute distress noted. No signs of pain or SOB. Safety measures initiated. Will continue with admission process.
[2018-12-13 04:00] VITALS: BP 127/60
[2018-12-13] MEDS ORDERED: TAMS-3 PO (08:03)
[2018-12-13 09:05] VITALS: BP 126/59
[2018-12-13 11:00] VITALS: BP 135/62
[2018-12-13 14:43] VITALS: BP 129/52
--- NOTE | 2018-12-13 19:30 | NUR ---
Received patient in bed with 1:1 sitter at bedside. No signs of acute distress noted. No complaints of pain or SOB. Patient is confused and trying to get out of bed, but easy to redirect. No episodes of aggression noted. Patient is still A/Ox1. Safety measures initiated. Bed is low and locked, bed alarm on, side rails up x3. Will continue to monitor.
[2018-12-13 20:00] VITALS: BP 146/56
[2018-12-13] MEDS: DIVALPROEX 250 MG TABLET.DR PO SCH (21:20)
[2018-12-13] MEDS: QUETIAPINE FUMARATE 25 MG TABLET PO SCH (21:20)
[2018-12-14] MEDS: DIVALPROEX 250 MG TABLET.DR PO SCH ×3 (08:03→21:00)
[2018-12-14 08:17] VITALS: BP 108/47
--- NOTE | 2018-12-14 14:00 | NUR ---
pt did not urinate from 0700 am to 1400 bladder scane done it showed 999ml md notified new orders received and carried out.
[2018-12-14 15:35] VITALS: BP 143/59
[2018-12-14 19:36] VITALS: BP 139/67
--- NOTE | 2018-12-14 20:45 | NUR ---
Patient transferred to MHU with 1:1 sitter in stable condition.
[2018-12-14] MEDS: ACETAMINOPHEN 325 MG TABLET PO PRN ×2 (20:56→21:14)
[2018-12-14] MEDS: QUETIAPINE FUMARATE 25 MG TABLET PO SCH ×2 (20:56→21:00)
[2018-12-14 21:04] VITALS: BP 132/59
--- NOTE | 2018-12-14 22:00 | NUR ---
received to care, at 2100, a transfer from 3rd floor GPS overflow, appearing confused and disoriented. 1;1 sitter at remains at bedside for safety, due to fall risk. refused all medications, and snacks offered. barcenas catheter remains in place, and patent, draining clear and kavin urine, in adequate amounts. as of 2200, he remains asleep. no distress noted. will continue to monitor closely.
--- NOTE | 2018-12-15 06:00 | NUR ---
slept fairly well, last night. continues to sleep. sitter remains at side. no distress noted.
[2018-12-15 07:30] VITALS: BP 129/48
--- NOTE | 2018-12-15 08:46 | NUR ---
Discharge Note: Patient will be discharged back home [[address] [place] [address]; ] via private transportation arranged by patient�s son � Fabrice Singh [[phone]] by 11:00am. Patient is alert and oriented x1, denies suicidal ideation, and is agreeable with discharge plan. Line Up Machine Operator discussed and offered placement options to patient�s sonFabrice. Patient�s son declined placement and stated family would like to have patient return home. Line Up Machine Operator also discussed with son the possibility of patient being discharged home with a Chandler catherer, and that patient may benefit from home health referral. Patient�s son Fabrice declined home health referral. Patient was provided with neurologist referral and is scheduled to be seen by Dr. Zackary Keane [[address] [place] [address], [address], [place] [address]; ] on , December 22, 2018 at 3:15pm. A continuing care packet has been sent to the office of Dr. Zackary Keane. Patient has also been provided with mental health resources including [facility] Crisis Line [ ], Kami Garcia [ ], and the National Suicide Prevention Lifeline [ ].
[2018-12-15] MEDS: DIVALPROEX 250 MG TABLET.DR PO SCH (08:48)
--- NOTE | 2018-12-15 11:00 | NUR ---
Discharged instructions given to and son, Fabrice regarding medications to continue at home . Prescription both psych and medical given and instructed to bring to patient pharm. to be filled, son verbalized understanding. Also, patient went home with barcenas catheter and son instructed how to take care of catheter. Fabrice, son stated that he will bring patient to [facility] right after the discharged.1130 Patient on wheel chair and wheeled to [place] to parking area by the hospital sitter. Patient discharged home with son and spouse, patient alert and ox2, denies SI/HI. No delusion. No a/v hallucination noted.
--- NOTE | 2018-12-15 11:40 | NUR ---
FIREARMS REPORT: Facial Operator completed and submitted a [employer] firearms report for 5150 DTO certification. A copy of report has been placed in patient chart.
--- NOTE | 2018-12-15 12:15 | NUR ---
Patient is being discharged home. Spoke with dr. Guerrier, who stated that the patient is to continue to have Barcenas catheter due to retention. Patient's family refused home health services. Teaching was provided to patient's son Fabrice, who verbalized understanding including the need to follow up with PCP. Fabrice stated that he understands that the barcenas catheter needs to be changed monthly if remains. Barcenas catheter appears intact, pt denies distress. Urine appears yellow and clear. VS are stable. Pt is alert and oriented x 2. All belongings returned and paperwork signed.
== END 2018-12-15 11:30 | disposition home or self-care (01) | DRG 885 ==
LOC: GPSOV3 18:02 → GPS 12-14 20:46
PROVIDERS: ADMIT Psychiatry & Neurology Psychiatry
DX: F29 Unspecified psychosis not due to a substance or known physiological condition (principal); G93.41 Metabolic encephalopathy; E44.0 Moderate protein-calorie malnutrition; D68.59 Other primary thrombophilia; F02.81 Dementia in other diseases classified elsewhere, unspecified severity, with behavioral disturbance; E11.9 Type 2 diabetes mellitus without complications; R62.7 Adult failure to thrive; Z68.23 Body mass index [BMI] 23.0-23.9, adult; Z74.09 Other reduced mobility; N40.0 Benign prostatic hyperplasia without lower urinary tract symptoms; E78.5 Hyperlipidemia, unspecified; G20 Parkinson's disease; E86.0 Dehydration; I10 Essential (primary) hypertension
CPT/HCPCS: 36415; 80164; 97116; 97530; J3490